=== PATIENT | male | born 1980 | race Caucasian/White ===

== ENCOUNTER 2016-06-10 13:07 | Emergency (ER) | payer OTHER ==
[2016-06-10 14:07] LABS: HEMOGLOBIN 15.5 gm/dl (14.0-17.5); RED BLOOD COUNT 5.56 M/UL (4.20-5.50)
[2016-06-10 14:37] LABS: BUN/CREATININE RATIO 6 (0-10)
== END 2016-06-10 16:34 | disposition left against medical advice (07) ==
LOC: ER1 13:07
PROVIDERS: Emergency Medicine
DX: K85.90 Acute pancreatitis without necrosis or infection, unspecified (principal); K29.80 Duodenitis without bleeding; I10 Essential (primary) hypertension; Z88.2 Allergy status to sulfonamides
CPT/HCPCS: 36415; 71010; 80053; 81001; 82150; 82550; 82553; 83690; 83874; 83880; 84484; 85025; 85379; 96374; 99284; J1885; J7030; Q9962

== ENCOUNTER 2016-06-11 16:18 | Emergency (ER) | payer OTHER ==
[2016-06-11 21:40] LABS: HEMOGLOBIN 16.1 gm/dl (14.0-17.5); RED BLOOD COUNT 5.69 M/UL (4.20-5.50)
[2016-06-11 21:42] LABS: WHITE BLOOD COUNT 10.7 K/UL (4.5-11.0)
[2016-06-11 21:58] LABS: BUN/CREATININE RATIO 7 (0-10)
== END 2016-06-12 01:00 | disposition home or self-care (01) ==
LOC: ER1 16:18
PROVIDERS: Physician Assistant
DX: R10.12 Left upper quadrant pain (principal); R10.32 Left lower quadrant pain; R11.2 Nausea with vomiting, unspecified; I10 Essential (primary) hypertension; K74.60 Unspecified cirrhosis of liver; K76.6 Portal hypertension; Z88.2 Allergy status to sulfonamides
CPT/HCPCS: 36415; 71010; 80053; 82150; 83605; 83690; 85025; 93005; 96374; 96375; 96376; 99284; J2270; J2405; J7030; J7050